=== PATIENT | male | born 1935 | race Caucasian/White ===

== ENCOUNTER → 2016-08-18 | Outpatient (CLI) | payer OTHER, MEDICARE ==
[~2016-08-18] MED LIST: ASPIRIN EC 325 MG TAB PO ONE; DIAZEPAM 5 MG TAB ONE; FAMOTIDINE 20 MG TAB ONE; IOPAMIDOL (ISOVUE-300) 100 ML BTL IV ONE; diphenhydrAMINE 25 MG CAP PO ONE
[2016-08-18 11:56] LABS: CREATININE 1.2 mg/dL (0.7-1.3)
== END ==
LOC: FIMAGING 10:41
PROVIDERS: ATTEND Physical Medicine & Rehabilitation
DX: J98.4 Other disorders of lung (principal); I25.83 Coronary atherosclerosis due to lipid rich plaque; M54.6 Pain in thoracic spine
CPT/HCPCS: 71260; Q9967

== ENCOUNTER → 2017-05-25 | Outpatient (CLI) | payer OTHER, MEDICARE | LOC: FIMAGING 12:50 | PROVIDERS: ATTEND Orthopaedic Surgery | DX: M75.82 Other shoulder lesions, left shoulder (principal); M75.22 Bicipital tendinitis, left shoulder; M75.42 Impingement syndrome of left shoulder; M19.012 Primary osteoarthritis, left shoulder ==